=== PATIENT | male | born 1975 | race Caucasian/White ===

== ENCOUNTER 2023-07-14 08:54 | Emergency (ER) | payer BC, SELFPAY ==
--- NOTE | 2023-07-14 08:56 | XR_ITS ---
FINAL REPORT CLINICAL HISTORY: fall, pain in left knee FINDINGS: Left knee Three views were obtained. There is no acute fracture or dislocation. There are minimal hypertrophic changes at the medial joint margin. No soft tissue abnormality is identified. IMPRESSION: No acute process. Reviewed, Interpreted and Dictated by Grant Dixon MD Transcribed by Mary Rubio Authenticated and [facility]
[2023-07-14 09:15] VITALS: BP 142/90; PULSE 65; RESP 19; TEMP 36.8; O2SAT 98; BMI 30.8
--- NOTE | 2023-07-14 09:42 | EXP.UTC ---
Discharge Plan Disposition Patient Disposition: Home, Self-Care Condition: Good Prescriptions Prescriptions: No Action No Known Home Medications Referrals Follow up/Referrals: Sheila Newman PA [Primary Care Provider] - See instructions Olvin Landrum DO [Staff Physician] - See instructions (Call office for appointment) Activity Restrictions/Add. Instructions Additional Instructions/Restrictions: *weight bearing as tolerated *RICE, Rest the extremity, Ice 15-20 minutes 3-4 times daily, Compress- wear the baldev wrap as discussed as much as possible to help reduce swelling and pain, Elevate the extremity when at rest *knee immobilizer is for support and help control swelling, use it except in the shower. Be sure that is not to tight but not to loose either *Elevate when resting? *Ibuprofen 600-800mg every 6-8 hours as needed for pain an inflammation. If need something more can take Tylenol in between doses of Ibuprofen to help Immediately follow up with your family doctor for new or worsening of symptoms, or no noticeable improvement over the next 3-5 days Follow up with your Family Doctor or Orthopedics for further imaging and testing if pain persists Clinical Impressions Clinical Impression: Knee pain Qualifiers: Chronicity: acute Laterality: left Qualified Code(s): M25.562 - Pain in left knee Instructions Patient Instructions: DI for Knee Pain, How to Use a Knee Immobilizer Discharge ED Provider: Natty Billings [facility] General Stated complaint: AO 07/13/23, fell, twisted left knee Mode of Arrival: Ambulatory Source of Information: Patient Limitations: No Limitations Time Seen by Provider: 07/14/23 09:25 Description of Symptoms (Recalled from Triage Doc. by RN): PATIENT STATES HE TWISTED HIS LEFT KNEE WHILE DOING KARATE LAST NIGHT HEENT Symptoms (Recalled from RN notes): No Resp Symptoms (Recalled from RN notes): No Skin Symptoms (Recalled from RN notes): No MS Symptoms (Recalled from RN notes): Yes Functional Status (Recalled from RN notes): WNL History of Present Illness Provider Complaint: Patient states that he was at Karate last night and he fell wrong and twisted his left knee States ever since he has been having pain on the inside of his left knee worse with movement and at times has a burning like feeling so this morning he came in to get it checked Related Data Home Medications Medication Instructions Recorded Confirmed No Known Home Medications 07/14/23 07/14/23 Allergies Allergy/AdvReac Type Severity Reaction Status Date / Time No Known Allergies Allergy Verified 07/14/23 09:22 Worker's Comp Is this a Worker's Comp case?: No [facility] Disclaimer: The information contained in this section may have been updated after the patient was seen, as this information can be updated by other users. Medical History (Updated 07/14/23 @ 10:10 by Natty Billings APRN) No significant past medical history Social History Smoking Status: Unknown if ever smoked alcohol intake: never current occupational status: employed Travel in the last 8 weeks: None ROS Obtained: Yes All systems reviewed & no additional complaints except as documented and Yes Systems reviewed as appropriate & no additional complaints except as documented Constitutional Constitutional: Reports system reviewed and no additional complaints, except as documented and Reports as per HPI ENT Ears, Nose, Mouth, and Throat: Reports system reviewed and no additional complaints, except as documented and Reports as per HPI Cardiovascular Cardiovascular: Reports system reviewed and no additional complaints, except as documented and Reports as per HPI Respiratory Respiratory: Reports system reviewed and no additional complaints, except as documented and Reports as per HPI Musculoskeletal Musculoskeletal: Reports system reviewed and no additional complaints, except as documented and Reports as per HPI Comments: pain and burning in left knee after falling last night and twisting it in Karate Physical Exam General General appearance: alert and in no apparent distress ENT ENT exam: Present mucous membranes moist Respiratory Respiratory exam: Present normal lung sounds bilaterally; Absent respiratory distress or wheezes Cardiovascular Cardiovascular exam: Present regular rate, normal rhythm and normal heart sounds Expanded Lower Extremity Exam Left: Knee exam: Present tenderness; Absent swelling, abrasion, ecchymosis, deformity, erythema or effusion Lower leg exam: Present normal inspection Ankle exam: Present normal inspection Foot/toe exam: Present normal inspection Neurological Exam Neurological exam: Present alert, oriented X3 and normal gait Medical Decision Making Ameya Inquiry Pt receiving controlled substance: No Ameya was queried for this patient: No Vital Signs: 07/14/23 09:15 Temperature 98.2 F Temperature Source Oral Pulse Rate [Left Brachial] 65 Respiratory Rate 19 Blood Pressure [Left Arm] 142/90 H Blood Pressure Mean [Left Arm] 107 Blood Pressure Source [Left Arm] Automatic Cuff Blood Pressure Position [Left Arm] Sitting 02 Sat by Pulse Oximetry 98 Oxygen Delivery Method Room Air Orders (Tests/Meds): ORDERS Category Date Time Status XR knee LT 3V Stat Exams 07/14/23 08:56 Taken Radiology Data #1: Image(s): Knee Image Reviewed: Yes I have reviewed radiologist's interpretation IMPRESSION: No acute process. Procedures Orthopedic Splinting/Casting Injury #1: Side: left Lower Extremity Injury Location: knee Lower Extremity Immobilizer: knee immobilizer Post Cast/Splinting Neuro Status: intact and no change Post Cast/Splinting Vasc Status: intact and no change
[2023-07-14 10:18] VITALS: BP 142/90; PULSE 65; RESP 19; TEMP 36.8; O2SAT 98
== END 2023-07-14 10:20 | disposition home or self-care (01) ==
PROVIDERS: Emergency Provider Nurse Practitioner; PCP Physician Assistant
DX: M25.562 Pain in left knee (principal); W18.39XA Other fall on same level, initial encounter; Y93.75 Activity, martial arts
CPT/HCPCS: 73562; 99204; 99212; G0463

== ENCOUNTER 2023-07-28 17:18 | Emergency (ER) | payer BC, SELFPAY ==
[2023-07-28 19:15] VITALS: BP 133/83; PULSE 74; RESP 20; TEMP 37.6; O2SAT 98; BMI 29.5
--- NOTE | 2023-07-28 19:54 | ED_ITS ---
Discharge Plan Disposition Patient Disposition: Home, Self-Care Condition: Good Prescriptions Prescriptions: New albuterol sulfate 90 mcg/actuation HFA aerosol inhaler 1 inh inhalation QID PRN (Reason: shortness of breath or wheezing) Qty: 6.7 0RF Referrals Follow up/Referrals: Sheila Newman PA [Primary Care Provider] - See instructions Activity Restrictions/Add. Instructions Additional Instructions/Restrictions: Start antibiotic today. Be sure to complete entire prescription even if feeling better Tylenol and ibuprofen as needed for pain or fever Humidifier/vaporizer/hot steamy shower Follow-up with primary care tomorrow. Follow-up immediately in the ER of the [facility] for new or worsening symptoms or no noticeable improvement over the next 48-72 hours. Stop smoking Inhaler every 4-6 hours as needed. Should help open airways improved cough, wheezing, shortness of breath Clinical Impressions Clinical Impression: Bronchitis Instructions Patient Instructions: Acute Bronchitis Discharge ED [facility] HPI General Stated complaint: cough Mode of Arrival: Ambulatory Source of Information: Patient Limitations: No Limitations Time Seen by Provider: 07/28/23 19:59 Description of Symptoms (Recalled from Triage Doc. by RN): Pt's symptoms are productive cough, and LAY. HEENT Symptoms (Recalled from RN notes): Yes Resp Symptoms (Recalled from RN notes): No Skin Symptoms (Recalled from RN notes): No MS Symptoms (Recalled from RN notes): No Functional Status (Recalled from RN notes): n/a History of Present Illness Provider Complaint: 48 yr old male presents for productive cough,soa and LAY. home covid neg, is taking amoxicillin Related Data Previous Rx's Medication Instructions Recorded albuterol sulfate 90 mcg/actuation 1 inh inhalation QID PRN shortness 07/28/23 aerosol inhaler of breath or wheezing #6.7 grams Allergies Allergy/AdvReac Type Severity Reaction Status Date / Time No Known Allergies Allergy Verified 07/14/23 09:22 Worker's Comp Is this a Worker's Comp case?: No [facility] Disclaimer: The information contained in this section may have been updated after the p atient was seen, as this information can be updated by other users. 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) Smoking Status: Unknown if ever smoked alcohol intake: never current occupational status: employed Travel in the last 8 weeks: None ROS Obtained: Yes All systems reviewed & no additional complaints except as documented Constitutional Constitutional: Reports system reviewed and no additional complaints, except as documented Eyes Eyes: Reports system reviewed and no additional complaints, except as documented ENT Ears, Nose, Mouth, and Throat: Reports system reviewed and no additional complaints, except as documented, Reports as per HPI, Reports nasal congestion and Reports nasal discharge Cardiovascular Cardiovascular: Reports system reviewed and no additional complaints, except as documented Respiratory Respiratory: Reports system reviewed and no additional complaints, except as documented, Reports as per HPI, Reports chest congestion, Reports cough and Reports excessive phlegm production Gastrointestinal Gastrointestingal: Reports system reviewed and no additional complaints, except as documented Musculoskeletal Musculoskeletal: Reports system reviewed and no additional complaints, except as documented Neurologic Neurologic: Reports system reviewed and no additional complaints, except as documented Hematologic/Lymphatic Henatologic/Lymphatic: Reports system reviewed and no additional complaints, except as documented Allergic/Immunologic Allergic/Immunologic: Reports system reviewed and no additional complaints, except as documented Physical Exam General General appearance: alert and in no apparent distress Head Head exam: atraumatic Eye Eye exam: Present normal appearance and PERRL ENT ENT exam: Present normal exam, normal oropharynx, mucous membranes moist and TM's normal bilaterally Respiratory Respiratory exam: Present wheezes Cardiovascular Cardiovascular exam: Present regular rate and normal rhythm Neurological Exam Neurological exam: Present alert and oriented X3 Psychiatric Psychiatric exam: Present normal affect Skin Skin exam: Present warm and intact Medical Decision Making Medical Records Medical records reviewed: Yes I reviewed the patient's medical records. Ameya Inquiry Pt receiving controlled substance: No Ameya was queried for this patient: No Vital Signs: 07/28/23 19:15 Temperature 99.6 F Temperature Source Oral Pulse Rate [Right Radial] 74 Respiratory Rate 20 Blood Pressure [Right Arm] 133/83 Blood Pressure Mean [Right Arm] 99 Blood Pressure Source [Right Arm] Automatic Cuff Blood Pressure Position [Right Arm] Sitting 02 Sat by Pulse Oximetry 98 Oxygen Delivery Method Room Air Lab Data Lab results reviewed: Yes I reviewed the patient's lab results.
[2023-07-28] MEDS: DEXAMETHASONE 4MG/ML 1ML VIAL 4 MG IM (20:04)
[2023-07-28] MEDS: ALBUTEROL 0.083% 2.5 MG/3 ML NEB IH (20:04)
[2023-07-28 20:31] VITALS: BP 141/87; PULSE 76; RESP 18; TEMP 37.1; O2SAT 99
== END 2023-07-28 20:31 | disposition home or self-care (01) ==
PROVIDERS: Emergency Provider Nurse Practitioner Family; PCP Physician Assistant
DX: J20.9 Acute bronchitis, unspecified (principal); R06.02 Shortness of breath; R51.9 Headache, unspecified; R05.9 Cough, unspecified
CPT/HCPCS: 96372; 99212; 99214; G0463

== ENCOUNTER 2024-05-02 13:24 | Outpatient (CLI) | payer OTHER, SELFPAY ==
--- NOTE | 2024-05-02 13:27 | MR_ITS ---
FINAL REPORT CLINICAL HISTORY: LEFT SHOULDER PAIN. LIMITED ROM. WEAKNESS IN ARM. NO INJURY OR TRAUMA FINDINGS: Multi planar MR imaging of the left shoulder was performed. The supraspinatus tendon appears intact. There is no abnormal fluid in the subacromial/subdeltoid bursa. There is abnormal linear signal at the anterior labrum consistent with anterior labral tear. Posterior labrum is intact. The biceps tendon appears intact. There are mild hypertrophic changes of the acromioclavicular joint. Mild edema is seen in the acromion and clavicle. IMPRESSION: Anterior labral tear. Hypertrophic changes of the acromioclavicular joint with mild edema in the acromion and clavicle. Reviewed, Interpreted and Dictated by Grant Dixon MD Transcribed by Jackie Krishnan Authenticated and [facility]
== END 2024-05-02 23:59 | disposition home or self-care (01) ==
LOC: RAD 13:24
PROVIDERS: PCP Nurse Practitioner Family; Visit Provider Nurse Practitioner Family
DX: M25.512 Pain in left shoulder (principal)
CPT/HCPCS: 73221